=== PATIENT | male | born 1985 | race Caucasian/White ===

== ENCOUNTER 2016-03-25 00:10 | Emergency (ER) | payer OTHER ==
[~2016-03-25] VITALS: Ht 172.7 cm; Wt 81.6 kg
[2016-03-25 00:17] VITALS: BP 129/80
--- NOTE | 2016-03-25 00:36 | NUR ---
PT TAKEN TO BED 4
--- NOTE | 2016-03-25 00:45 | NUR ---
PT STATES NO COUGH OR FEVER. HAS RUNNY NOSE AND HEADACHE , DIARRHEA X 2 DAYS. PT STATES NO MED HX. DENIES N/V/; SKIN IS PINK/WARM/DRY; AAOX4 WITH EVEN AND STEADY GAIT; LUNGS CLEAR BL; HR EVEN AND REGULAR; PT DENIES ANY FEVER, CP, SOB, OR COUGH AT THIS TIME; PATIENT STATES PAIN OF 7/10 AT THIS TIME; VSS; PATIENT POSITIONED FOR COMFORT; HOB ELEVATED; BEDRAILS UP X2; BED DOWN. ER MD MADE AWARE OF PT STATUS.
--- NOTE | 2016-03-25 00:52 | NUR ---
Dr. Reyna evaluating patient at bedside.
[2016-03-25 01:40] VITALS: BP 122/74
--- NOTE | 2016-03-25 01:40 | NUR ---
Patient discharged with v/s stable. Written and verbal after care instructions given and explained. Patient alert, oriented and verbalized understanding of instructions. Ambulatory with steady gait. All questions addressed prior to discharge. ID band removed. Patient advised to follow up with PMD. Rx of AUGMENTIN, MOTRIN, SUDAFED given. Patient educated on indication of medication including possible reaction and side effects. Opportunity to ask questions provided and answered.
== END 2016-03-25 01:40 | disposition home or self-care (01) ==
LOC: MED 00:10
DX: J06.9 Acute upper respiratory infection, unspecified (principal); J32.9 Chronic sinusitis, unspecified

== ENCOUNTER 2016-06-25 19:01 | Emergency (ER) | payer OTHER ==
[~2016-06-25] VITALS: Ht 172.7 cm; Wt 86.2 kg
[2016-06-25 19:29] VITALS: BP 142/78
--- NOTE | 2016-06-25 21:21 | NUR ---
PATIENT LEFT WITHOUT BEING SEEN BY DR. ARMAS. NO FURTHER CARE PROVIDED FOR PATIENT.
== END 2016-06-25 21:21 | disposition left against medical advice (07) ==
LOC: MED 19:01
DX: R10.30 Lower abdominal pain, unspecified (principal); Z53.21 Procedure and treatment not carried out due to patient leaving prior to being seen by health care provider